=== PATIENT | female | born 1965 | race Caucasian/White ===

== ENCOUNTER → 2017-01-30 | Outpatient (REF) | payer OTHER | LOC: M LAB REF 19:40 | PROVIDERS: ATTEND Physician Assistant | DX: N39.0 Urinary tract infection, site not specified (principal) ==

== ENCOUNTER → 2023-02-10 | Outpatient (REF) | payer OTHER | LOC: M LAB REF 09:59 | PROVIDERS: ATTEND Physician Assistant Medical | DX: R30.0 Dysuria (principal) ==